=== PATIENT | female | born 1965 | race African-American/Black ===

== ENCOUNTER 2016-11-13 13:11 | Emergency (ER) | payer SELFPAY ==
[2016-11-13 14:15] LABS: ABSOLUTE BASOPHILS # (AUTO) 0.1 10^3/uL (0.0-0.2); ABSOLUTE EOSINOPHILS # (AUTO) 0.3 10^3/uL (0.0-0.6); ABSOLUTE LYMPHOCYTES (AUTO) 2.5 10^3/uL (0.5-4.7); ABSOLUTE MONOCYTES (AUTO) 0.4 10^3/uL (0.1-1.4); ABSOLUTE NEUT (AUTO) 1.8 10^3/uL (1.7-8.2); BASOPHILS % (AUTO) 1.1 % (0-2); EOSINOPHILS % (AUTO) 5.7 % (0-6); HEMATOCRIT 38.5 % (36.0-47.0); HEMOGLOBIN 13.2 g/dL (12.0-15.5); HGB HCT DIFFERENCE 1.1; LYMPHOCYTES % (AUTO) 49.4 % (13-45); MEAN CORPUSCULAR HEMOGLOBIN 30.3 pg (27.0-33.4); MEAN CORPUSCULAR HGB CONC 34.2 g/dL (32.0-36.0); MEAN CORPUSCULAR VOLUME 89 fl (80-97); MONOCYTES % (AUTO) 7.7 % (3-13); RED BLOOD COUNT 4.35 10^6/uL (3.72-5.28); RED CELL DISTRIBUTION WIDTH 17.4 % (11.5-14.0); SEGMENTED NEUTROPHILS % (AUTO) 36.1 % (42-78); WHITE BLOOD COUNT 5.1 10^3/uL (4.0-10.5)
[2016-11-13 14:19] LABS: APPEARANCE,URINE CLEAR; BILIRUBIN,URINE NEGATIVE (NEGATIVE); GLUCOSE, URINE NEGATIVE (NEGATIVE); KETONES,URINE NEGATIVE (NEGATIVE); LEUKOCYTE ESTERASE,URINE NEGATIVE (NEGATIVE); NITRITE,URINE NEGATIVE (NEGATIVE); PROTEIN,URINE NEGATIVE (NEGATIVE); URINE SPECIFIC GRAVITY 1.006
--- NOTE | 2016-11-13 14:31 | ER Document Report ---
HPI - HPI Pain Level: 1 Notes: Patient is a 50-year-old female with no significant past medical history who presents the ED complaining of seeing blood on the toilet paper status post bowel movement around 11:00 this morning. Patient states that this is the first time that she is ever noticed it. Patient states that otherwise she is feeling fine. Patient has not had a colonoscopy in the past. She still eating and drinking without any difficulties. Patient states that she has been constipated lately and has been having to push harder to get the stool out. Patient denies any anal itching, hemorrhoid, or sharp pain. She denies any drug allergies. Denies any smoking, drug use, alcohol intake. No other concerns or complaints at this time. Denies any headache, fever, dysphagia, chest pain, palpitations, syncope, cough, shortness of breath, wheeze, dyspnea, abdominal pain, nausea/vomiting/diarrhea, urinary retention, dysuria, hematuria , vaginal discharge/bleeding/odor, or rash. Denies family history of colon cancer. - ROS Notes: REVIEW OF SYSTEMS: CONSTITUTIONAL : Denies fever, chills, or sweats. Denies recent illness. EENT: Denies eye, ear, throat, or mouth pain or symptoms. Denies nasal or sinus congestion or discharge. Denies throat, tongue, or mouth swelling or difficulty swallowing. CARDIOVASCULAR: Denies chest pain. Denies palpitations or racing or irregular heart beat. Denies ankle edema. RESPIRATORY: Denies cough, cold, or chest congestion. Denies shortness of breath, difficulty breathing, or wheezing. GASTROINTESTINAL: Denies abdominal pain or distention. Denies nausea, vomiting , or diarrhea. Denies black, tarry stools. Denies constipation. GENITOURINARY: Denies difficulty urinating, painful urination, burning, frequency, blood in urine, or discharge. FEMALE GENITOURINARY: Denies vaginal bleeding, heavy or abnormal periods, irregular periods. Denies vaginal discharge or odor. MUSCULOSKELETAL: Denies back or neck pain or stiffness. Denies joint pain or swelling. SKIN: Denies rash, lesions or sores. NEUROLOGICAL: Denies confusion or altered mental status. Denies passing out or loss of consciousness. Denies dizziness or lightheadedness. Denies headache. Denies weakness or paralysis or loss of use of either side. Denies problems with gait or speech. Denies sensory loss, numbness, or tingling. Denies seizures. PSYCHIATRIC: Denies anxiety or stress. Denies depression, suicidal ideation, or homicidal ideation. ALL OTHER SYSTEMS REVIEWED AND NEGATIVE. Dictation was performed using [employer] voice recognition software - CARDIOVASCULAR Cardiovascular: DENIES: Chest pain - DERM Skin Color: Normal Past Medical History - Social History Smoking Status: Never Smoker Frequency of alcohol use: None Drug Abuse: None Family History: Reviewed & Not Pertinent Patient has suicidal ideation: No Patient has homicidal ideation: No Renal/ Medical History: Denies: Hx Peritoneal Dialysis Vertical Provider Document - CONSTITUTIONAL Agree With Documented VS: Yes Notes: PHYSICAL EXAMINATION: female nurse in room during exam GENERAL: Well-appearing, well-nourished and in no acute distress. LUNGS: Breath sounds clear to auscultation bilaterally and equal. No wheezes rales or rhonchi. HEART: Regular rate and rhythm without murmurs, rubs, gallops. ABDOMEN: Soft, nontender, nondistended abdomen. No guarding, no rebound. No masses appreciated. Normal bowel sounds present. No CVA tenderness bilaterally. Rectal exam revealed possible scant bright red blood near the rectum. Non-tender. No obvious hemorrhoids noted. Possible fissure noted. Extremities: No cyanosis, clubbing, or edema b/l. Peripheral pulses 2+. Capillary refill less than 3 seconds. NEUROLOGICAL: Normal speech, normal gait. Normal sensory, motor exams PSYCH: Normal mood, normal affect. SKIN: Warm, Dry, normal turgor, no rashes or lesions noted. - INFECTION CONTROL TRAVEL OUTSIDE OF THE [place] IN LAST 30 DAYS: No - RESPIRATORY O2 Sat by Pulse Oximetry: 97 Course - Re-evaluation Re-evalutation: 11/13/16 14:45 Patient is an afebrile, well-hydrated, 50-year-old female who presents the ED with rectal bleeding and Hemoccult positive, suspect anal fissure based on H&P at this time. Vitals are stable. PE otherwise unremarkable. CBC, CMP, urinalysis unremarkable. Low suspicion/risk for acute appendicitis, bowel obstruction, acute cholecystitis, acute cholangitis, perforated diverticulitis, incarcerated hernia, pancreatitis, perforated ulcer, peritonitis, sepsis, pelvic inflammatory disease, ectopic , tubo-ovarian abscess, ovarian torsion, or other systemic emergent condition at this time. Patient is aware that her condition can change from initial presentation and she needs to monitor symptoms closely and seek medical attention if any acute changes. Conservative measures otherwise for symptoms. Schedule an appointment with gastroenterology this week for further evaluation and colonoscopy. Recheck with your PCM in 2-3 days. Return to the ED with any worsening/concerning symptoms otherwise as reviewed in discharge. Patient is in agreement. - Vital Signs Vital signs: Temp Pulse Resp BP Pulse Ox 98.4 F 71 16 167/85 H 97 11/13/16 13:18 11/13/16 13:18 11/13/16 13:18 11/13/16 13:18 11/13/16 13:18 - Laboratory Result Diagrams: 11/13/16 13:51 11/13/16 13:51 Laboratory results interpreted by me: 11/13/16 11/13/16 13:51 13:51 RDW 17.4 H Seg Neutrophils % 36.1 L Lymphocytes % 49.4 H Urine Urobilinogen 2.0 H Discharge - Discharge Clinical Impression: Rectal bleed Condition: Stable Disposition: HOME, SELF-CARE Instructions: Anal Fissure ([facility]), Rectal Bleeding, Unclear Cause ([facility]) Additional Instructions: Your symptoms are more suspicious for an anal fissure and no emergent illness at this time Maintain adequate water intake and fiber intake Take MiraLAX as directed Monitor symptoms closely Schedule an appointment with gastroenterology for colonoscopy and further evaluation Recheck with your primary care provider this week as well Return to the ED with any worsening symptoms and/or development of fever, headache, chest pain, palpitations, syncope, shortness of breath, trouble breathing, abdominal pain, n/v/d, increased blood in stool/urine, or other worsening symptoms that are concerning to you. Prescriptions: Polyethylene Glycol 3350 [Miralax] 1 cap PO DAILY #527 powder Forms: Elevated Blood Pressure Referrals: CELIA ALANIS MD [ACTIVE STAFF] - Follow up in 1 week [facility] [Provider Group] - Follow up as needed [facility] [Provider Group] - Follow up as needed
[2016-11-13 14:34] LABS: ALANINE AMINOTRANSFERASE 26 U/L (9-52); ALBUMIN 4.4 g/dL (3.5-5.0); ALKALINE PHOSPHATASE 141 U/L (38-126); ANION GAP 12 (5-19); ASPARTATE AMINO TRANSFERASE 16 U/L (14-36); BILIRUBIN,DIRECT 0.4 mg/dL (0.0-0.4); BILIRUBIN,TOTAL 0.5 mg/dL (0.2-1.3); BLOOD UREA NITROGEN 8 mg/dL (7-20); CALCIUM 9.5 mg/dL (8.4-10.2); CARBON DIOXIDE 25 mmol/L (22-30); CHLORIDE 106 mmol/L (98-107); CREATININE RESULT 0.68 mg/dL (0.52-1.25); GLUCOSE 81 mg/dL (75-110); POTASSIUM 4.2 mmol/L (3.6-5.0); SODIUM 142.7 mmol/L (137-145); TOTAL PROTEIN 7.3 g/dL (6.3-8.2)
[2016-11-13 15:32] VITALS: BP 137/84
== END 2016-11-13 15:23 | disposition home or self-care (01) ==
LOC: ER 13:11
DX: K62.5 Hemorrhage of anus and rectum (principal)
CPT/HCPCS: 36415; 80053; 81001; 82272; 85025; 99283

== ENCOUNTER 2016-12-03 16:55 | Emergency (ER) | payer SELFPAY | END 2016-12-03 17:30 | disposition left against medical advice (07) | LOC: ER 16:55 | DX: Z53.21 Procedure and treatment not carried out due to patient leaving prior to being seen by health care provider (principal) ==

== ENCOUNTER 2016-12-05 09:29 | Emergency (ER) | payer SELFPAY ==
[2016-12-05 09:37] VITALS: BP 152/92
[2016-12-05] MEDS ORDERED: DEXAMETHASONE SOD PHOS INJ 10 MG/1 ML VIAL IM ONE (10:08)
--- NOTE | 2016-12-05 10:11 | ER Document Report ---
ED Allergic Reaction - General Chief Complaint: Allergic Reaction Stated Complaint: SKIN PROBLEM Time Seen by Provider: 12/05/16 10:02 Mode of Arrival: Ambulatory TRAVEL OUTSIDE OF THE [place] IN LAST 30 DAYS: No - HPI Notes: 51-year-old previously healthy female presents with diffuse urticarial rash. Started 3 days ago on her arm and now has been coming and going in different parts of her body basically from her upper legs to her neck and torso region including her extremities. It is extremely pruritic worse at night. She denies any new ingestions such as new foods or medications. She has not altered her lifestyle with new detergents lotions or other. Denies recent illness fever, urinary tract symptoms, dysuria hematuria, cough or cold symptoms. Denies any breathing difficulty or throat swelling. No prior history of diabetes. Denies any pain but the itching has been bad enough she has caused some abrasions. - Related Data Allergies/Adverse Reactions: No Known Allergies Allergy (Verified 12/05/16 09:59) Past Medical History - Social History Smoking Status: Never Smoker Family History: Reviewed & Not Pertinent Patient has suicidal ideation: No Patient has homicidal ideation: No Renal/ Medical History: Denies: Hx Peritoneal Dialysis Surgical Hx: Negative Review of Systems - Review of Systems -: Yes All other systems reviewed and negative Physical Exam - Vital signs Vitals: Temp Pulse Resp BP Pulse Ox 98.4 F 74 20 152/92 H 100 12/05/16 09:34 12/05/16 09:34 12/05/16 09:34 12/05/16 09:34 12/05/16 09:34 - Notes Notes: GENERAL: VS as per nursing doc. Well-appearing, well-nourished and in no acute distress. Comfortably working on computer. HEAD: Atraumatic, normocephalic. EYES: Pupils equal round and reactive to light, extraocular movements intact, sclera anicteric, no conjunctival injection or discharge. ENT: Nares patent, oropharynx clear without exudates, moist mucous membranes without mucosal lesions. NECK: Normal range of motion, supple without lymphadenopathy. LUNGS: Breath sounds clear to auscultation bilaterally and equal. No wheezes rales or rhonchi. HEART: Regular rate and rhythm without murmurs. ABDOMEN: Soft, non-tender. BACK: Urticaria as noted below EXTREMITIES: Normal range of motion, no calf tenderness, no edema. NEUROLOGICAL: Cranial nerves grossly intact. Normal speech. No gross motor, sensory or cerebellar abnormalities. PSYCH: Normal mood, normal affect. SKIN: Warm, dry, multiple urticarial areas are noted predominately with excoriations over the forearms. There are no weeping lesions, they are fairly circumscribed and urticarial in nature. Face and mucosal surfaces, soles of feet and palms are spared. Involves the torso and the extremities otherwise. Course - Re-evaluation Re-evalutation: 12/05/16 10:12 Patient presents with urticaria with unclear etiology without lifestyle, medication or other changes. She has tried Benadryl without relief. We will give her a shot of Decadron and have her get primary care follow-up. We will give her a prescription for Atarax for the itching as well. - Vital Signs Vital signs: Temp Pulse Resp BP Pulse Ox 98.4 F 74 20 152/92 H 100 12/05/16 09:34 12/05/16 09:34 12/05/16 09:34 12/05/16 09:34 12/05/16 09:34 Discharge - Discharge Clinical Impression: Urticaria Condition: Good Disposition: HOME, SELF-CARE Additional Instructions: Use the prescribed medication as needed for itching. Contact your primary care physician or other for follow-up. Consider dermatology if recurring or not improving. Take a long-acting antihistamine as well such as Zyrtec, Claritin, or Alessandra daily as well until improving. Prescriptions: Hydroxyzine Pamoate [Vistaril 25 mg Capsule] 1 - 2 mg PO Q6HP PRN #20 capsule PRN Reason: Loratadine [Claritin 10 mg Tablet] 10 mg PO DAILY #14 tablet Forms: Elevated Blood Pressure Referrals: [facility] [Provider Group] - Follow up as needed
== END 2016-12-05 10:27 | disposition home or self-care (01) ==
LOC: ER 09:29
DX: L50.9 Urticaria, unspecified (principal)
CPT/HCPCS: 99283; 96372; J1100

== ENCOUNTER → 2016-12-11 | Outpatient (CLI) | payer SELFPAY ==
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
== END ==
LOC: WI 09:14
PROVIDERS: ATTEND Nurse Practitioner Women's Health
DX: Z12.31 Encounter for screening mammogram for malignant neoplasm of breast (principal)
CPT/HCPCS: 77067; G0202

== ENCOUNTER 2017-09-23 08:28 | Emergency (ER) | payer SELFPAY ==
--- NOTE | 2017-09-23 08:57 | RADIOLOGY REPORT (SQ) ---
EXAM DESCRIPTION: ANKLE LEFT COMPLETE COMPLETED DATE/TIME: 09/23/2017 8:45 am REASON FOR STUDY: bed 11 s/p fall +pain COMPARISON: None. NUMBER OF VIEWS: Three views. TECHNIQUE: AP, lateral, and oblique radiographic images acquired of the left ankle. LIMITATIONS: None. FINDINGS: MINERALIZATION: Normal. BONES: Spiral minimally displaced fractures of the distal shaft of the tibia and fibula. Nondisplace d transverse fracture through the the medial malleolus. JOINTS: No effusions. SOFT TISSUES: No soft tissue swelling. No foreign body. OTHER: Small heel spur IMPRESSION: Fractures of the distal shafts of the tibia, fibula and medial malleolus. Talotibial anne int is intact. TECHNICAL DOCUMENTATION: JOB ID: [id number] [employer] All Rights Reserved Reading location - IP/workstation name: [email or web address]
[2017-09-23] MEDS ORDERED: HYDROMORPHONE HCL INJ/PF 2 MG/ML AMPULE IV ONE (09:05)
--- NOTE | 2017-09-23 09:07 | ER Document Report ---
ED General - General Chief Complaint: Ankle Injury Stated Complaint: LEFT ANKLE PAIN Time Seen by Provider: 09/23/17 08:36 Mode of Arrival: Medic Information source: Patient Notes: 51-year-old female presents after mechanical fall injuring her left leg. Patient notes she was on stairs which were loose. Patient denies any previous surgeries orthopedic TRAVEL OUTSIDE OF THE [place] IN LAST 30 DAYS: No - HPI Onset: Just prior to arrival Onset/Duration: Sudden Quality of pain: Sharp Severity: Severe Pain Level: 5 Associated symptoms: Body/muscle aches Exacerbated by: Movement Relieved by: Denies Similar symptoms previously: No Recently seen / treated by doctor: No - Related Data Allergies/Adverse Reactions: No Known Allergies Allergy (Verified 12/05/16 09:59) Past Medical History - Social History Smoking Status: Never Smoker Cigarette use (# per day): No Chew tobacco use (# tins/day): No Smoking Education Provided: No Drug Abuse: None Family History: Reviewed & Not Pertinent Patient has suicidal ideation: No Patient has homicidal ideation: No Renal/ Medical History: Denies: Hx Peritoneal Dialysis Review of Systems - Review of Systems Notes: REVIEW OF SYSTEMS: MUSCULOSKELETAL: Admits to left leg ankle pain ALL OTHER SYSTEMS REVIEWED AND NEGATIVE. PHYSICAL EXAMINATION: GENERAL: Well-appearing, well-nourished and in no acute distress. HEAD: Atraumatic, normocephalic. EYES: Pupils equal round and reactive to light, extraocular movements intact, conjunctiva are normal. ENT: Nares patent, oropharynx clear without exudates. Moist mucous membranes. NECK: Normal range of motion, supple without lymphadenopathy LUNGS: Breath sounds clear to auscultation bilaterally and equal. No wheezes rales or rhonchi. HEART: Regular rate and rhythm without murmurs ABDOMEN: Soft, nontender, nondistended abdomen. No guarding, no rebound. No masses appreciated. Female : deferred Musculoskeletal: Pulses are intact limited range of motion secondary to pain no obvious deformity NEUROLOGICAL: Cranial nerves grossly intact. Normal speech, normal gait. Normal sensory, motor exams PSYCH: Normal mood, normal affect. SKIN: Warm, Dry, normal turgor, no rashes or lesions noted. Dictation was performed using [employer] voice recognition software Physical Exam - Vital signs Vitals: Temp Pulse Resp BP Pulse Ox 98.1 F 70 18 128/55 H 95 09/23/17 08:34 09/23/17 08:34 09/23/17 08:34 09/23/17 08:34 09/23/17 08:34 Course - Re-evaluation Re-evalutation: 09/23/17 09:06 Patient's x-rays consistent with tibia fibula fracture, patient will be placed in a splint given orthopedic follow-up patient given Dilaudid for pain control 09/23/17 09:38 Dr Adelaida osorio he offers patient admission versus follow-up in office patient wishes to follow-up 09/23/17 10:01 After performing a Medical Screening Examination, I estimate there is LOW risk for INTRACRANIAL HEMORRHAGE, UNSTABLE SPINE FRACTURE, CENTRAL CORD SYNDROME, CAUDA EQUINA, THORACIC AORTIC DISSECTION, PNEUMOTHORAX, PERFORATED BOWEL, RUPTURED ABDOMINAL AORTIC ANEURYSM, ACUTE TENDON RUPTURE, COMPARTMENT SYNDROME, or OPEN FRACTURE, thus I consider the discharge disposition reasonable. Also, there is no evidence or peritonitis, sepsis, or toxicity. I have reevaluated this patient multiple times and no significant life threatening changes are noted. The patient and I have discussed the diagnosis and risks, and we agree with discharging home to follow-up with their primary doctor with the understanding that symptoms and presentations can change. We also discussed returning to the Emergency Department immediately if new or worsening symptoms occur. We have discussed the symptoms which are most concerning (e.g., bloody stool, fever, changing or worsening pain, vomiting) that necessitate immediate return. - Vital Signs Vital signs: Temp Pulse Resp BP Pulse Ox 98.1 F 70 18 128/55 H 95 09/23/17 08:34 09/23/17 08:34 09/23/17 08:34 09/23/17 08:34 09/23/17 08:34 - Diagnostic Test Radiology reviewed: Reports reviewed Procedures - Immobilization Left Leg Time completed: 10:00 Pre-Proc Neuro Vasc Exam: Normal Immobilizer type: Short Leg Posterior Performed by: PCT Post-Proc Neuro Vasc Exam: Normal Alignment checked and good: No Discharge - Discharge Clinical Impression: Tibia/fibula fracture Qualifiers: Encounter type: initial encounter Fracture type: closed Laterality: left Qualified Code(s): S82.202A - Unspecified fracture of shaft of left tibia, initial encounter for closed fracture; S82.402A - Unspecified fracture of shaft of left fibula, initial encounter for closed fracture; S82.402A - Unspecified fracture of shaft of left fibula, initial encounter for closed fracture Condition: Stable Disposition: HOME, SELF-CARE Instructions: Use of Crutches ([facility]), Fractured Tibia ([facility]) Prescriptions: Oxycodone HCl/Acetaminophen [Percocet 5-325 mg Tablet] 1 - 2 tab PO Q4H PRN #25 tablet PRN Reason: Referrals: YUNIOR FIELD MD [ACTIVE STAFF] - Follow up tomorrow
[2017-09-23 12:47] VITALS: BP 137/89
== END 2017-09-23 12:47 | disposition home or self-care (01) ==
LOC: ER 08:28
DX: S82.242A Displaced spiral fracture of shaft of left tibia, initial encounter for closed fracture (principal); S82.442A Displaced spiral fracture of shaft of left fibula, initial encounter for closed fracture; W10.9XXA Fall (on) (from) unspecified stairs and steps, initial encounter; Y92.009 Unspecified place in unspecified non-institutional (private) residence as the place of occurrence of the external cause
CPT/HCPCS: 99284; 96374; 73610; 29515; J1170

== ENCOUNTER → 2020-03-21 | Outpatient (CLI) | payer SELFPAY ==
--- NOTE | 2020-03-21 14:19 | WOMENS IMAGING REPORT ---
EXAM DESCRIPTION: BILAT SCREENING MAMMO W/CAD IMAGES COMPLETED DATE/TIME: 03/21/2020 1:26 pm REASON FOR STUDY: ROUTINE SCREENING MAMMOGRAM Z12.31 Z12.31 ENCNTR SCREEN MAMMOGRAM FOR MALIGNANT N EOPLASM OF CHRISSY COMPARISON: 12/11/2016. EXAM PARAMETERS: Standard craniocaudal and mediolateral oblique views of each breast recorded using digital acquisition. Read with the assistance of CAD. .[employer] - Direct Dermatology Print Cutter Version 9.2 LIMITATIONS: None. FINDINGS: No suspicious masses, suspicious calcifications or architectural distortion. No areas of c oncern. IMPRESSION: NEGATIVE MAMMOGRAM. BIRADS 1 BREAST DENSITY: b. There are scattered areas of fibroglandular density. BIRAD: ASSESSMENT: 1 NEGATIVE RECOMMENDATION: ROUTINE SCREENING COMMENT: The patient has been notified of the results by letter per MQSA requirements. Additional no tification policies are in place for contacting patient with suspicious or incomplete findings. Quality ID #[id number]: The [employer] [employer] recommends an annual screening mammogram for women aged 40 years or over. This facility utilizes a reminder system to ensure that all patients receive reminder letters, and/or direct phone calls for appointments. This includes reminders for routine scr eening mammograms, diagnostic mammograms, or other Breast Imaging Interventions when appropriate. Th is patient will be placed in the appropriate reminder system. TECHNICAL DOCUMENTATION: FINDING NUMBER: (1) ASSESSMENT: (1) JOB ID: [id number] [employer]- All Rights Reserved Reading location - IP/workstation name: [email or web address]
== END ==
LOC: WI 13:38
PROVIDERS: ATTEND Midwife
DX: Z12.31 Encounter for screening mammogram for malignant neoplasm of breast (principal)
CPT/HCPCS: 77067